=== PATIENT | female | born 1985 | race American Indian/Alaskan Native ===

== ENCOUNTER 2018-03-03 09:03 | Emergency (ER) | payer MEDICAID ==
[2018-03-03 09:04] VITALS: BMI 25.1
[2018-03-03 09:26] VITALS: RESP 18; O2SAT 100
[2018-03-03 10:46] LABS: BASO % 0.4 % (0.0-2.0); EOS # 0.1 K/uL (0.0-0.7); EOS % 0.8 % (0.0-4.0); HEMOGLOBIN 11.7 g/dL (11.0-16.0); LYMPH % 27.2 % (20.0-40.0); MEAN CELL VOLUME 90.6 fL (81.0-99.0); MEAN CORPUSCULAR HEMOGLOBIN 31.2 pg (27.0-31.0); MEAN CORPUSCULAR HGB CONC 34.4 g/dL (33.0-37.0); MEAN PLATELET VOLUME 8.6 fL (7.2-11.7); MONO # 0.5 K/uL (0.0-0.8); MONO % 6.2 % (0.0-10.0); NEUT # 4.9 K/uL (1.8-7.0); NEUT % 65.4 % (50.0-75.0); RBC 3.76 Mil/uL (3.80-5.20); RED CELL DISTRIBUTION WIDTH 14.1 % (11.5-14.5); WHITE BLOOD COUNT 7.5 K/uL (4.8-10.8)
[2018-03-03 10:49] LABS: HCG,QUALITATIVE URINE POSITIVE (NEGATIVE)
[2018-03-03 10:51] LABS: ALB/GLOB RATIO 1.6 (1.0-2.1); ALBUMIN 4.2 g/dL (3.5-5.0); ALT/SGPT 23 U/L (9-52); AST/SGOT 19 U/L (14-36); BLOOD UREA NITROGEN 4 mg/dL (7-17); GFR AFRICAN-AMERICAN > 60; GFR NON-AFRICAN AMERICAN > 60
[2018-03-03 11:00] LABS: SQUAMOUS EPITHIAL 10 /hpf (0-5); URINE BACTERIA FEW (<OCC); URINE BILIRUBIN NEGATIVE (NEGATIVE); URINE BLOOD 2+ (NEGATIVE); URINE CLARITY Hazy (Clear); URINE COLOR Yellow (YELLOW); URINE GLUCOSE (UA) NORMAL (Normal); URINE LEUKOCYTE ESTERASE TRACE Leu/uL (Negative); URINE PROTEIN NEGATIVE (NEGATIVE); URINE UROBILINOGEN NORMAL mg/dL (0.2-1.0)
--- NOTE | 2018-03-03 11:30 | US ---
Date of service: 03/03/2018 PROCEDURE: OB Pelvic Ultrasound HISTORY: bleeding LMP: 12/31/2017 COMPARISON: None available. FINDINGS: UTERUS: Gestational sac: Single intrauterine gestation. Measures 3.8 cm compatible with estimated gestational age of 9 weeks, 0 days. Yolk sac: Measures 0.3 cm. pole: [place] rump length measures 2.7 cm compatible with estimated gestational age of 9 weeks, 3 days. Heart rate: 157 bpm. age (Ultrasound estimated): 9 weeks, 2 days Lauren-gestational hemorrhage: None. Date of delivery (Ultrasound estimated) : 10/04/2018 Uterus measures 12.0 x 7.9 x 7.8 cm. Anteverted. Normal in size and appearance. CERVIX: Measures 3.4 cm. Long and closed. No cervical abnormality seen. RIGHT OVARY: Measures 4.4 x 3.4 x 4.4 cm. Cyst measuring 2.7 x 2.8 x 2.7 cm. Normal flow. LEFT OVARY: Measures 2.9 x 1.9 x 2.7 cm. No solid mass. Normal flow. FREE FLUID: None. OTHER FINDINGS: None. IMPRESSION: Single live intrauterine gestation with average ultrasound age of 9 weeks, 2 days. heart rate 157 beats per minute. Cervix long and closed.
--- NOTE | 2018-03-03 11:43 | C.PDOC ---
History Of Present Illness 33-year-old female, (A2, 8 weeks), presents to the emergency department with complaints of vaginal bleed. Patient states she has been experiencing vaginal spotting that started yesterday. She notes mild associated abdominal cramping, which has now resolved. She denies nausea/vomiting, fever, chills, or any other associated symptoms. No other complaints at this time. Of note, pt states she has had pre- care, and had ultrasound which was "normal." LMP Time Seen by Provider: 03/03/18 09:15 Chief Complaint (Nursing): Female Genitourinary History Per: Patient History/Exam Limitations: no limitations Onset/Duration Of Symptoms: Days Current Symptoms Are (Timing): Still Present Severity: Moderate Past Medical History Reviewed: Historical Data, Nursing Documentation, Vital Signs Vital Signs: Last Vital Signs Temp 98.6 F 03/03/18 12:20 Pulse 72 03/03/18 12:20 Resp 18 03/03/18 12:20 BP 122/70 03/03/18 12:20 Pulse Ox 100 03/03/18 18:16 - [facility] Procedures ARTIF RUPT MEMBRANES NEC (07/15/14) VACUUM EXTRACT DEL NEC (07/15/14) Family History: States: No Known Family Hx - Social History Hx Tobacco Use: Yes Hx Alcohol Use: No Hx Substance Use: No - Immunization History Hx Tetanus Toxoid Vaccination: No Hx Influenza Vaccination: No Hx Pneumococcal Vaccination: No Review Of Systems Constitutional: Negative for: Fever, Chills Cardiovascular: Negative for: Chest Pain Respiratory: Negative for: Shortness of Breath Gastrointestinal: Positive for: Abdominal Pain. Negative for: Nausea, Vomiting Genitourinary: Positive for: Vaginal Bleeding. Negative for: Dysuria, Hematuria Musculoskeletal: Negative for: Back Pain Skin: Negative for: Rash Neurological: Negative for: Weakness, Numbness, Headache, Dizziness Physical Exam - Physical Exam Appears: Non-toxic, No Acute Distress Skin: Normal Color, Warm, Dry, No Rash Head: Atraumatic, Normacephalic Eye(s): bilateral: Normal Inspection, EOMI Nose: Normal Oral Mucosa: Moist Lips: Normal Appearing Neck: Normal ROM, Supple Chest: Symmetrical Cardiovascular: Rhythm Regular Respiratory: Normal Breath Sounds, No Accessory Muscle Use Gastrointestinal/Abdominal: Soft, No Tenderness Back: No CVA Tenderness, No Paraspinal Tenderness Extremity: Normal ROM, No Deformity, No Swelling Neurological/Psych: Oriented x3, Normal Speech ED Course And Treatment - Laboratory Results Result Diagrams: 03/03/18 10:30 03/03/18 10:30 O2 Sat by Pulse Oximetry: 100 (RA) Pulse Ox Interpretation: Normal - CT Scan/US US Other Rad Studies (CT/US): Read By Radiologist, Radiology Report Reviewed CT/US Interpretation: Accession No. : [id number]. Patient Name / ID : NOAH DANGELO / [id number]. Exam Date : 03/03/2018 11:09:58 ( Approved ). Study Comment : Sex / Age : F / 33Y. Creator : Jose Champagne MD. Dictator : Jose Champagne MD. Lunchroom Worker : Grocery Specialist : Jose Champagne MD. Approver2 : Report Date : 03/03/2018 11:28:55. My Comment : . Date of service: 03/03/2018. PROCEDURE: OB Pelvic Ultrasound. HISTORY: bleeding. LMP: 12/31/2017. COMPARISON: None available. FINDINGS: UTERUS: Gestational sac: Single intrauterine gestation. Measures 3.8 cm compatible with estimated gestational age of 9 weeks, 0 days. Yolk sac: Measures 0.3 cm. pole: [place] rump length measures 2.7 cm compatible with estimated gestational age of 9 weeks, 3 days. Heart rate: 157 bpm. age ( Ultrasound estimated): 9 weeks, 2 days. Lauren-gestational hemorrhage: None. Date of delivery (Ultrasound estimated) : 10/04/2018. Uterus measures 12.0 x 7.9 x 7.8 cm. Anteverted. Normal in size and appearance. CERVIX: Measures 3.4 cm. Long and closed. No cervical abnormality seen. RIGHT OVARY: Measures 4.4 x 3.4 x 4.4 cm. Cyst measuring 2.7 x 2.8 x 2.7 cm. Normal flow. LEFT OVARY: Measures 2.9 x 1.9 x 2.7 cm. No solid mass. Normal flow. FREE FLUID: None. OTHER FINDINGS: None. IMPRESSION: Single live intrauterine gestation with average ultrasound age of 9 weeks, 2 days. heart rate 157 beats per minute. Cervix long and closed. Progress Note: Bloodwork, UA and US ordered and reviewed. Work up discussed with pt and copies given. Instructed re-evaluation in 2-3 days or return to ER if symtpoms persist or worsen. Disposition - Disposition Disposition: HOME/ ROUTINE Disposition Time: 12:06 Condition: STABLE Additional Instructions: Your Beta HCG today is 100, 000. Follow up with your OBGYN/ER in 2-3 days for re -evaluation. Return to ER if symptoms persist or worsen. Prescriptions: Nitrofurantoin Macrocrystals [Macrobid] 1 cap PO BID #14 cap Instructions: Bleeding With (DC) Forms: [facility] (Armenian) - Clinical Impression Clinical Impression: UTI (urinary tract infection), First trimester bleeding - Scribe Statement The provider has reviewed the documentation as recorded by the Scribe (Princess Romero) All medical record entries made by the Scribe were at my direction and personally dictated by me. I have reviewed the chart and agree that the record accurately reflects my personal performance of the history, physical exam, medical decision making, and the department course for this patient. I have also personally directed, reviewed, and agree with the discharge instructions and disposition.
[2018-03-03 12:31] VITALS: BP 122/70; PULSE 72; TEMP 98.6
== END 2018-03-03 12:31 | disposition home or self-care (01) ==
LOC: C.ER 09:03
DX: O23.31 Infections of other parts of urinary tract in pregnancy, first trimester (principal); Z3A.09 9 weeks gestation of pregnancy

== ENCOUNTER 2018-12-29 19:44 | Emergency (ER) | payer MEDICAID ==
[2018-12-29 19:44] VITALS: BMI 25.1
[2018-12-29 20:13] VITALS: BP 136/89; PULSE 114; RESP 20; TEMP 97.9; O2SAT 99
[2018-12-29] MEDS ORDERED: Tdap Vaccine 0.5 ml Vial (10-64 yrs) IM ONE ×2 (20:31→21:07)
[2018-12-29] MEDS ORDERED: Lidocaine Hydrochloride 10 ML INJ ONE (21:10)
[2018-12-29] MEDS ORDERED: Bacitracin 500 Units/gm Oint Foilpak UD ONE (21:54)
--- NOTE | 2018-12-29 22:03 | C.PDOC ---
History Of Present Illness 33 year old female presents to the ED for evaluation of a laceration. Patient reports a glass of wine dropped to the floor and she stepped onto the glass, sustained a laceration to her right great toe plantar aspect. Patient denies rash, fever, chills, weakness, numbness. Time Seen by Provider: 12/29/18 20:21 Chief Complaint (Nursing): Lower Extremity Problem/Injury History Per: Patient History/Exam Limitations: no limitations Onset/Duration Of Symptoms: Hrs Current Symptoms Are (Timing): Still Present Recent travel outside of the [place]: No Additional History Per: Patient - Ankle/Foot Description Of Injury: Laceration Past Medical History Reviewed: Historical Data, Nursing Documentation, Vital Signs Vital Signs: Last Vital Signs Temp 97.9 F 12/29/18 20:06 Pulse 114 H 12/29/18 20:06 Resp 20 12/29/18 20:06 BP 136/89 12/29/18 20:06 Pulse Ox 99 12/29/18 20:06 Primary Care Provider: Wyatt Enrique - Medical History PMH: No Chronic Diseases Surgical History: No Surg Hx - [facility] Procedures ARTIF RUPT MEMBRANES NEC (07/15/14) VACUUM EXTRACT DEL NEC (07/15/14) Family History: States: Unknown Family Hx - Social History Hx Tobacco Use: Yes Hx Alcohol Use: No Hx Substance Use: No - Immunization History Hx Tetanus Toxoid Vaccination: No Hx Influenza Vaccination: No Hx Pneumococcal Vaccination: No Review Of Systems Constitutional: Negative for: Fever, Chills Gastrointestinal: Negative for: Vomiting, Diarrhea Musculoskeletal: Positive for: Foot Pain. Negative for: Back Pain, Leg Pain Skin: Positive for: Other (laceration) Neurological: Negative for: Weakness, Numbness, Headache Physical Exam - Physical Exam Appears: Well, Non-toxic, No Acute Distress Skin: Normal Color, Warm, Dry Head: Atraumatic, Normacephalic Eye(s): bilateral: Normal Inspection, PERRL, EOMI Neck: Normal ROM, Supple Extremity: Normal ROM, Capillary Refill (< 2 seconds), No Swelling, Other (right great toe plantar aspect near fat pad 4 cm L-shaped laceration. No FB seen) Pulses: Left Dorsalis Pedis: Normal, Right Dorsalis Pedis: Normal Neurological/Psych: Oriented x3, Normal Speech, Normal Motor, Normal Sensation Gait: Steady ED Course And Treatment O2 Sat by Pulse Oximetry: 99 (ON RA) Pulse Ox Interpretation: Normal - Other Rad Right foot X-Ray X-Ray: Interpreted by Me, Viewed By Me Interpretation: tiny aspect of FB seen Laceration - Laceration Repair right great toe plantar aspect Wound Length (In cm): 4 Description Of Wound: Irregular (L-shaped ) Wound Cleansed With: Betadine, Sterile Saline Anesthesia: Lidocaine 1% Wound Examination: Irrigated With Saline, No Tendon Injury With Wound Exploration Wound Closure: Suture (x 12) Suture Technique And Material Used: Interrupted, Nylon (4-0) Medical Decision Making Medical Decision Making: Plan: * Tetanus * Right foot X-Ray Patient foot was well washed with approximately a liter of sterile saline and betadine solution . Patient tolerated suturing procedure well. Proper wound care instructions explained. Disposition Counseled Patient/Family Regarding: Diagnosis, Need For Followup - Disposition Disposition: HOME/ ROUTINE Disposition Time: 22:01 Condition: STABLE Additional Instructions: Return to ER for suture removal in 12-14 days. Return sooner if there are any signs of infection including increasing pain, increasing swelling, increasing redness, or pus discharge. Instructions: Laceration Repair With Stitches (DC) Forms: General Discharge Instructions, [facility] (Bulgarian), Work Excuse - Clinical Impression Clinical Impression: Laceration of toe - PA / ATHLETIC TEAM PHYSICIAN / Resident Statement MD/DO has reviewed & agrees with the documentation as recorded. - Scribe Statement The provider has reviewed the documentation as recorded by the Scribe nAtonio Smith All medical record entries made by the Scribe were at my direction and personally dictated by me. I have reviewed the chart and agree that the record accurately reflects my personal performance of the history, physical exam, medical decision making, and the department course for this patient. I have also personally directed, reviewed, and agree with the discharge instructions and disposition.
--- NOTE | 2018-12-30 08:32 | RAD ---
PROCEDURE: Radiographs of the right great toe. TECHNIQUE:: AP radiograph of the right foot, with oblique and lateral view of the right great toe. COMPARISON: None. TECHNIQUE: 3 views obtained. FINDINGS: BONES: No acute fracture. There is a tiny ossific density seen in the soft tissues along the lateral plantar aspect of the base of the 1st distal phalanx. Uncertain significance.. This is only evident on 1. There is no radiopaque foreign body identified. There is no mass. There is no osseous erosion or periosteal reaction. There is soft tissue swelling noted. JOINTS: Normal. SOFT TISSUES: Soft tissue swelling. OTHER FINDINGS: None. IMPRESSION: No definite radiopaque foreign body.
== END 2018-12-29 22:19 | disposition home or self-care (01) ==
LOC: C.ER 19:44
DX: S91.111A Laceration without foreign body of right great toe without damage to nail, initial encounter (principal); W25.XXXA Contact with sharp glass, initial encounter

== ENCOUNTER 2019-01-08 12:02 | Emergency (ER) | payer MEDICAID ==
[2019-01-08 12:03] VITALS: BMI 25.1
[2019-01-08 12:15] VITALS: BP 113/70; PULSE 98; RESP 18; TEMP 98.7; O2SAT 100
--- NOTE | 2019-01-08 12:45 | C.PDOC ---
History Of Present Illness 33 y/o female presents to ED for suture removal. Patient had sustained a laceration to her right great toe about 2 weeks ago after stepping on broken glass. She denies any complaints at this time. Time Seen by Provider: 01/08/19 12:29 Chief Complaint (Nursing): Suture/Staple Removal History Per: Patient History/Exam Limitations: no limitations Onset/Duration Of Symptoms: Days Ago Current Symptoms Are (Timing): Better Past Medical History Reviewed: Historical Data, Nursing Documentation, Vital Signs Vital Signs: Last Vital Signs Temp 98.7 F 01/08/19 12:14 Pulse 98 H 01/08/19 12:14 Resp 18 01/08/19 12:14 BP 113/70 01/08/19 12:14 Pulse Ox 100 01/08/19 12:14 Primary Care Provider: FAMILY PROVIDER,NO - [facility] Procedures ARTIF RUPT MEMBRANES NEC (07/15/14) VACUUM EXTRACT DEL NEC (07/15/14) Family History: States: No Known Family Hx - Social History Hx Tobacco Use: Yes Hx Alcohol Use: No Hx Substance Use: No - Immunization History Hx Tetanus Toxoid Vaccination: No Hx Influenza Vaccination: No Hx Pneumococcal Vaccination: No Review Of Systems Constitutional: Negative for: Fever, Chills Skin: Positive for: Other (laceration to right great toe). Negative for: Rash Neurological: Negative for: Weakness, Numbness Physical Exam - Physical Exam Appears: Non-toxic, No Acute Distress Skin: Warm, Dry Head: Atraumatic, Normacephalic Eye(s): bilateral: Normal Inspection Neck: Normal ROM, Supple Chest: Symmetrical Cardiovascular: Rhythm Regular Respiratory: Normal Breath Sounds, No Wheezing Extremity: Normal ROM, No Pedal Edema, Capillary Refill (less than 2 seconds), No Swelling Pulses: Left Dorsalis Pedis: Normal, Right Dorsalis Pedis: Normal Neurological/Psych: Oriented x3, Normal Speech, Normal Cognition, Normal Motor, Normal Sensation Gait: Steady ED Course And Treatment O2 Sat by Pulse Oximetry: 100 (RA) Pulse Ox Interpretation: Normal Medical Decision Making Medical Decision Makin sutures removed without any complications. No active bleeding. Disposition Counseled Patient/Family Regarding: Diagnosis, Need For Followup, Rx Given - Disposition Referrals: Shaik Crouch MD [Staff Provider] - Disposition: HOME/ ROUTINE Disposition Time: 12:58 Condition: STABLE Additional Instructions: Apply bacitracin to help heal area Follow up with PMD Return to ED for any signs of infection Prescriptions: Bacitracin OINT 1 applic TP DAILY #1 tube Instructions: Stitches Removal Forms: [facility] (Albanian) - Clinical Impression Clinical Impression: Removal of suture - PA / WEB PRODUCTION DESIGNER / Resident Statement MD/DO has reviewed & agrees with the documentation as recorded. - Scribe Statement The provider has reviewed the documentation as recorded by the Scribe Shamika Mazariegos All medical record entries made by the Scribe were at my direction and personally dictated by me. I have reviewed the chart and agree that the record accurately reflects my personal performance of the history, physical exam, medical decision making, and the department course for this patient. I have also personally directed, reviewed, and agree with the discharge instructions and disposition.
[2019-01-08] MEDS ORDERED: Bacitracin 500 Units/gm Oint Foilpak UD ONE (12:50)
== END 2019-01-08 13:00 | disposition home or self-care (01) ==
LOC: C.ER 12:02
DX: Z48.02 Encounter for removal of sutures (principal)